=== PATIENT | male | born 1975 | race Caucasian/White ===

== ENCOUNTER 2018-04-30 09:20 | Emergency (ER) | payer OTHER, SELFPAY ==
[2018-04-30 09:20] VITALS: BMI 28.7
[2018-04-30] MEDS ORDERED: Lidocaine 1% Inj (20ml) INFIL STA (10:02)
[2018-04-30] MEDS ORDERED: Lidocaine 2% MPF (5 ml) Inj ONE (10:08)
[2018-04-30] MEDS ORDERED: Lidocaine Hydrochloride 5 ML INJ ONE (10:14)
[2018-04-30 10:45] LABS: FLUID TYPE SYNOVIAL FLUID
--- NOTE | 2018-04-30 11:12 | C.PDOC ---
History Of Present Illness 43 y/o male presents to the ER complaining of increased fluid collection over left knee over the past 3 days. Patient states that he had a minor contusion to the knee 2 weeks ago. Patient reports that he was walking extensively with his family 3 days ago. He notes that has swelling. Otherwise, patient denies having pain in knee, decreased ROM in knee, fever, and chills. Time Seen by Provider: 04/30/18 09:55 Chief Complaint (Nursing): Lower Extremity Problem/Injury History Per: Patient History/Exam Limitations: no limitations Onset/Duration Of Symptoms: Days Current Symptoms Are (Timing): Still Present Severity: Moderate Past Medical History Reviewed: Historical Data, Nursing Documentation, Vital Signs Vital Signs: Last Vital Signs Temp 98.6 F 04/30/18 09:37 Pulse 63 04/30/18 09:37 Resp 18 04/30/18 09:37 BP 123/76 04/30/18 09:37 Pulse Ox 98 04/30/18 09:37 - Medical History PMH: No Chronic Diseases Other Surgeries: Hx of surgeries - [facility] Procedures CORNEAL REPAIR NEC (11/27/13) EXCISE CONJUNCTIV LESION (01/29/14) OTHER SKIN & SUBQ I D (09/04/13) PTERYGIUM EXCISION NEC (11/27/13) Family History: States: No Known Family Hx - Social History Hx Tobacco Use: No Hx Alcohol Use: No Hx Substance Use: No - Immunization History Hx Tetanus Toxoid Vaccination: No Hx Influenza Vaccination: No Hx Pneumococcal Vaccination: No Review Of Systems Except As Marked, All Systems Reviewed And Found Negative. Constitutional: Negative for: Fever, Chills Skin: Positive for: Other (fluid collection over left knee) Physical Exam - Physical Exam Appears: Non-toxic, No Acute Distress Skin: Normal Color, Warm, Dry, Other (fluctuant fluid collection in suprapatellar bursa of left knee, 10 x 10 mm) Head: Atraumatic, Normacephalic Eye(s): bilateral: Normal Inspection Nose: Normal Oral Mucosa: Moist Neck: Supple Chest: Symmetrical Cardiovascular: Rhythm Regular Respiratory: Normal Breath Sounds, No Rales, No Rhonchi, No Wheezing Extremity: Normal ROM (full ROM in left knee without pain), No Tenderness (left knee), No Pedal Edema, Other (no joint effusion to left knee) Neurological/Psych: Oriented x3, Normal Speech ED Course And Treatment - Laboratory Results Lab Interpretation: Abnormal (synovial fluid/L knee aspirate: 430 WBC's (WNL) and 116K RBC's) O2 Sat by Pulse Oximetry: 98 (RA) Pulse Ox Interpretation: Normal Procedure: Blank - Time Out Time Out: Side verified, Site verified - Procedure Procedure:: Left Knee - Arthrocentesis - Consent obtained: Consent obtained: Written - Performed by: Performed by:: Attending physician - Topical: Local/Regional Anesthetic:: Lidocaine 1% (5 CC's) - Location Location: Left, Knee - Description Discription of Procedure: 04/30/18 (120 CC's of blood tinged serous fluid was removed from left knee.) - Result Result: Successful - Post-Procedure Post-procedure:: Other (bandage and walter-wrap applied to knee) - Patient Tolerated Procedure Patient Tolerated Procedure:: Well Medical Decision Making Medical Decision Making: Arthrocentesis of left knee was performed. Patient tolerated well. Samples have been sent for cell count. A/P trauamtic join effusion no joint pain now drained x 120 cc NSAIDS /WALTER wrap Disposition Doctor Will See Patient In The: Office Counseled Patient/Family Regarding: Studies Performed, Diagnosis - Disposition Disposition: HOME/ ROUTINE Disposition Time: 12:30 Condition: GOOD Forms: [facility] (Eth[place]ian) - Clinical Impression Clinical Impression: Prepatellar effusion of left knee - Scribe Statement The provider has reviewed the documentation as recorded by the Brittanie Chiang Provider Attestation: All medical record entries made by the Alejandroibjim were at my direction and personally dictated by me. I have reviewed the chart and agree that the record accurately reflects my personal performance of the history, physical exam, medical decision making, and the department course for this patient. I have also personally directed, reviewed, and agree with the discharge instructions and disposition.
[2018-04-30 12:18] VITALS: BP 107/64; PULSE 57; RESP 19; TEMP 98.3
[2018-04-30 12:20] LABS: SF GROSS APPEARANCE BLOODY (CLEAR); SYNOVIAL FLUID MONO/MACROPHAGE 13 % (0-0)
[2018-04-30 12:30] VITALS: O2SAT 98
== END 2018-04-30 12:51 | disposition home or self-care (01) ==
LOC: C.ER 09:20
DX: M25.462 Effusion, left knee (principal)

== ENCOUNTER 2018-05-08 07:53 | Emergency (ER) | payer OTHER, SELFPAY ==
[2018-05-08 07:53] VITALS: BMI 28.7
--- NOTE | 2018-05-08 10:22 | C.PDOC ---
History Of Present Illness 43 year old male presents to the ED complaining of recurrent fluid collection over left knee. States he fell 4 weeks ago and 3 days later he noticed swelling in his left knee. Patient was seen in the ED 8 days ago for same symptoms and anthrocentesis was performed successfully. Denies any pain, decreased ROM, fever or chills. Time Seen by Provider: 05/08/18 08:55 Chief Complaint (Nursing): Lower Extremity Problem/Injury History Per: Patient History/Exam Limitations: no limitations Onset/Duration Of Symptoms: Days Current Symptoms Are (Timing): Still Present - Knee Description Of Injury: Fell Past Medical History Reviewed: Historical Data, Nursing Documentation, Vital Signs Vital Signs: Last Vital Signs Temp 97.8 F 05/08/18 07:56 Pulse 60 05/08/18 07:56 Resp 20 05/08/18 07:56 BP 133/85 05/08/18 07:56 Pulse Ox 99 05/08/18 07:56 - Medical History PMH: No Chronic Diseases Other Surgeries: Hx of surgeries - [facility] Procedures CORNEAL REPAIR NEC (11/27/13) EXCISE CONJUNCTIV LESION (01/29/14) OTHER SKIN & SUBQ I D (09/04/13) PTERYGIUM EXCISION NEC (11/27/13) Family History: States: No Known Family Hx - Social History Hx Tobacco Use: No Hx Alcohol Use: No Hx Substance Use: No - Immunization History Hx Tetanus Toxoid Vaccination: No Hx Influenza Vaccination: No Hx Pneumococcal Vaccination: No Review Of Systems Except As Marked, All Systems Reviewed And Found Negative. Constitutional: Negative for: Fever, Chills Musculoskeletal: Positive for: Other (left knee fluid collection ) Neurological: Negative for: Weakness, Numbness Physical Exam - Physical Exam Appears: Non-toxic, No Acute Distress Skin: Warm, Dry Head: Normacephalic Eye(s): bilateral: Normal Inspection Nose: Normal Oral Mucosa: Moist Neck: Normal ROM, Supple Chest: Symmetrical Cardiovascular: Rhythm Regular Respiratory: No Rales, No Rhonchi, No Wheezing Gastrointestinal/Abdominal: Soft, No Tenderness Extremity: Normal ROM (left knee), No Tenderness, Swelling (left knee), Other (warmth and suprapatellar fluid collection to the left knee) Extremity: Bilateral: Normal ROM Neurological/Psych: Oriented x3, Normal Speech, Normal Motor, Normal Sensation, Normal Reflexes Gait: Steady ED Course And Treatment O2 Sat by Pulse Oximetry: 99 (RA) Pulse Ox Interpretation: Normal - Other Rad XR left knee X-Ray: Viewed By Me, Read By Radiologist Interpretation: Accession No. : [id number]. Patient Name / ID : BRADLEY KRUSE / [id number]. Exam Date : 05/08/2018 10:02:50 ( Approved ). Study Comment : Sex / Age : M / 43Y. Creator : Mariely Marquis MD. Dictator : Mariely Marquis MD. Shook Splicer : Life Support Technician : Mariely Marquis MD. Approver2 : Report Date : 05/08/2018 10:35:37. My Comment : . PROCEDURE: Left Knee Radiographs. HISTORY: Trauma with effusion. COMPARISON: No prior. FINDINGS: BONES: No acute displaced fracture. JOINTS: No dislocation. JOINT EFFUSION: Small suprapatellar joint effusion. OTHER FINDINGS: Marked prepatellar soft tissue swelling with possible hematoma. IMPRESSION: Marked prepatellar soft tissue swelling with possible hematoma. Small suprapatellar joint effusion. No acute displaced fracture or dislocation identified. Progress Note: Patient was seen by Ortho PA at bedside and requested MRI of the knee as per request. Medical Decision Making Medical Decision Making: Plan -- XR left knee Orthopedics was paged. Recommends MRI of left knee. Disposition - Disposition Disposition Time: 14:37 Condition: STABLE Forms: [facility] (Citizen Of [place]) - Clinical Impression Clinical Impression: Prepatellar effusion of left knee - PA / PRESERVATIVE FILLER MACHINE OPERATOR / Resident Statement MD/DO has reviewed & agrees with the documentation as recorded. - Scribe Statement The provider has reviewed the documentation as recorded by the Scribe Elaine Charles All medical record entries made by the Scribe were at my direction and personally dictated by me. I have reviewed the chart and agree that the record accurately reflects my personal performance of the history, physical exam, medical decision making, and the department course for this patient. I have also personally directed, reviewed, and agree with the discharge instructions and disposition. Physician Patient Turnover Patient Signed Over To: Lillie Grey Handoff Comments: MRI reading and Ortho eval
--- NOTE | 2018-05-08 10:39 | RAD ---
PROCEDURE: Left Knee Radiographs. HISTORY: Trauma with effusion COMPARISON: No prior. FINDINGS: BONES: No acute displaced fracture. JOINTS: No dislocation. JOINT EFFUSION: Small suprapatellar joint effusion. OTHER FINDINGS: Marked prepatellar soft tissue swelling with possible hematoma. IMPRESSION: Marked prepatellar soft tissue swelling with possible hematoma. Small suprapatellar joint effusion. No acute displaced fracture or dislocation identified.
--- NOTE | 2018-05-08 13:51 | CP.PCM.CON ---
History of Present Illness - History of Present Illness History of Present Illness: Orthopedic consultation Dr. Cordero 43M complains of left knee swelling x approx 1 month. He says he fell and landed on his knee about a month ago, and then he developed a lot of swelling in the front of his knee. He came to the ER and it was drained on 04/30. He made a follow up appt for [facility] in may, however the swelling recurred, so he came back to the ER. Denies fever/chills/sweats. Denies CP/SOB/dizziness/ No prior knee swelling. Minimal pain only. He is able to walk without any pain. He denies any knee pain prior to the last month after that fall. 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 Non smoker. No PMH/PSH. Review of Systems - Review of Systems All systems: reviewed and no additional remarkable complaints except - Cardiovascular Cardiovascular: As Per HPI - Respiratory Respiratory: As Per HPI - Gastrointestinal Gastrointestinal: As Per HPI - Musculoskeletal Musculoskeletal: As Per HPI - Neurological Neurological: As Per HPI - Hematologic/Lymphatic Hematologic: absent: As Per HPI, Easy Bleeding, Easy Bruising, Lymphadenopathy, Other Past Patient History - Past Medical History & Family History Past Medical History?: Yes Past Family History: Reviewed and not pertinent - Past Social History Smoking Status: Never Smoked - HEENT Hx HEENT Problems: Yes (scar conjunctival sac) - INTEGUMENTARY Hx Dermatological Problems: Yes Other/Comment: METAL IN LEFT FOOT CAUSING CELLULITIS - PSYCHIATRIC Hx Substance Use: No - SURGICAL HISTORY Hx Eye Surgery: Yes (exc.pterygium) - ANESTHESIA Hx Anesthesia: Yes Hx Anesthesia Reactions: No Meds Home Medications: Home Medication List Medication Instructions Recorded Confirmed Type Naproxen [Naprosyn] 1 tab PO BID PRN #20 tab 05/08/18 Rx Allergies/Adverse Reactions: Allergies Allergy/AdvReac Type Severity Reaction Status Date / Time No Known Allergies Allergy Verified 05/08/18 08:01 Physical Exam - Constitutional Appears: Well, No Acute Distress - Head Exam Head Exam: ATRAUMATIC - Neck Exam Neck exam: Positive for: Full Rom, Normal Inspection - Respiratory Exam Respiratory Exam: NORMAL BREATHING PATTERN - Cardiovascular Exam Additional comments: +DP/PT pulses - Extremities Exam Additional comments: no joint effusion appreciated, clinically appears all prepatellar - Expanded Lower Extremities Exam Left Hip exam: full ROM, normal inspection Knee exam: full ROM, swelling (very large fluctuant area of swelling to anterior knee. No erythema, not warm. skin intact. Full pain free ROM of knee. No lax varus/valgus/seble/neg homans, neg patellar laxity or apprehension, minimally tender) Lower Leg Exam: normal inspection (calves soft NT neg homans) Ankle exam: FULL ROM, NORMAL INSPECTION Neuro vacular tendon exam: no vascular compromise (+DP/PT pulsess, sensatino intact) - Neurological Exam Neurological exam: Alert, Oriented x3 - Psychiatric Exam Psychiatric exam: Normal Affect, Normal Mood - Skin Skin Exam: Dry, Intact, Normal Color, Warm Results - Vital Signs Recent Vital Signs: Last Vital Signs Temp 98.1 F 05/08/18 11:35 Pulse 53 L 05/08/18 11:35 Resp 17 05/08/18 11:35 BP 111/63 05/08/18 11:35 Pulse Ox 100 05/08/18 11:35 - Impressions Impression: atient Name / ID : BRADLEY KRUSE / [id number] Exam Date : 05/08/2018 13:26:00 ( Approved ) Study Comment : Sex / Age : M / 43Y Creator : Roshan Heredia MD Dictator : Roshan Heredia MD Timing Adjuster : Senior Writer : Roshan Heredia MD Approver2 : Report Date : 05/08/2018 15:11:40 My Comment : MRI left knee History: Prepatellar soft tissue swelling COMPARISON: X-ray dated 05/08/2018 TECHNIQUE: Multi-echo multiplanar sequences were performed through the left knee without the use of intravenous contrast. Findings: Thinning and attenuation with increased signal seen within the visualized anterior cruciate ligament suggestive for a moderate grade sprain with interstitial partial tearing/interstitial delamination. Posterior cruciate ligament is preserved. Transverse linear oblique signal seen within body and posterior horn of the medial meniscus extending to the inferior articular surface consistent with a tear. Discoid lateral meniscus with globular increased signal within the anterior horn of the lateral meniscus suggestive for intrasubstance degeneration and or intrasubstance partial tearing. Medial collateral ligament is preserved. Lateral collateral ligament complex structures are preserved. Mild distal quadriceps tendinopathy. Patellar tendon is preserved. Patellar cartilage is preserved. Low-grade strains of the medial and lateral patellar retinaculum. Mild cartilage thinning and loss involving the anterior midportion of the medial compartment of the femorotibial joint space. No significant suprapatellar joint effusion. Large amount of fluid within the prepatellar soft tissues/prepatellar bursa with heterogeneous attenuation seen at the inferior margin. The collection measures 15.3 x 9.5 x 12.0 centimeters suggestive for a severe prepatellar bursitis with associated possible hemorrhagic components at the inferior margin of the collection. Superimposed acute inflammatory and or infectious changes cannot be excluded. Adjacent reticulation and edema within the adjacent subcutaneous soft tissues. Focal signal abnormality seen within the anterior distal femur near the intercondylar notch at its midline as seen on series 4, image 12 demonstrating decreased T1 signal and increased STIR signal suggestive for bone bruising and or subchondral osseous injury and or osteochondral change and or additional etiology. Clinical correlation. 5 millimeter subchondral cyst formation noted within the posterior midline proximal tibia near the articular surface. Impression: 1. Large amount of fluid within the prepatellar soft tissues/prepatellar bursa with heterogeneous attenuation seen at the inferior margin. The collection measures 15.3 x 9.5 x 12.0 centimeters suggestive for a severe prepatellar bursitis with associated possible hemorrhagic components at the inferior margin of the collection. Superimposed acute inflammatory and or infectious changes cannot be excluded. Adjacent reticulation and edema within the adjacent subcutaneous soft tissues. 2. Thinning and attenuation with increased signal seen within the visualized anterior cruciate ligament suggestive for a moderate grade sprain with interstitial partial tearing/interstitial delamination. 3. Transverse linear oblique signal seen within body and posterior horn of the medial meniscus extending to the inferior articular surface consistent with a tear. 4. Discoid lateral meniscus with globular increased signal within the anterior horn of the lateral meniscus suggestive for intrasubstance degeneration and or intrasubstance partial tearing. 5. Mild distal quadriceps tendinopathy. 6. Low-grade strains of the medial and lateral patellar retinaculum. 7. Mild cartilage thinning and loss involving the anterior midportion of the medial compartment of the femorotibial joint space. 8. Focal signal abnormality seen within the anterior distal femur near the intercondylar notch at its midline as seen on series 4, image 12 demonstrating decreased T1 signal and increased STIR signal suggestive for bone bruising and or subchondral osseous injury and or osteochondral change and or additional etiology. Clinical correlation. 9. 5 millimeter subchondral cyst formation noted within the posterior midline proximal tibia near the articular surface. Assessment & Plan (1) Prepatellar bursitis, left knee Assessment and Plan: recurrent, prior aspiration in ED shows >100k RBC, 400 WBC, no indication of infection risks/benefits/alt of aspiration explained to patient in detail, consents to procedure translation device used 130cc of red tinged serous fluid aspirated from prepatellar area sent for gram stain and cx, fluid cell count, crystals bulky velasquez dressing applied post procedure, tolerated very well leave dressing intact until follow up visit no exercise, rest knee and limit flexing when possible return to ED for fever/chills/sweats/increased pain/redness/CP/SOB/palp advised patient that recurrence is possible case d/w Dr. Cordero, agrees with above patient with no pain in his knee at rest or with ambulation to suggest that there is significant bone bruise to indicate restricted WB at this time will monitor f/u orthopedic clinic 05/15 at 9am [facility], call for appointment MRI reviewed and report noted, meniscal tears asymptomatic at this time f/u cell count and cx Status: Acute (2) Prepatellar effusion of left knee Status: Acute
[2018-05-08] MEDS ORDERED: Lidocaine 1% Inj (20ml) INFIL ONE (14:20)
[2018-05-08] MEDS ORDERED: Lidocaine Hydrochloride 5 ML INJ ONE (14:28)
[2018-05-08 15:02] LABS: FLUID TYPE SYNOVIAL FLUID
--- NOTE | 2018-05-08 15:15 | MRI ---
MRI left knee History: Prepatellar soft tissue swelling COMPARISON: X-ray dated 05/08/2018 TECHNIQUE: Multi-echo multiplanar sequences were performed through the left knee without the use of intravenous contrast. Findings: Thinning and attenuation with increased signal seen within the visualized anterior cruciate ligament suggestive for a moderate grade sprain with interstitial partial tearing/interstitial delamination. Posterior cruciate ligament is preserved. Transverse linear oblique signal seen within body and posterior horn of the medial meniscus extending to the inferior articular surface consistent with a tear. Discoid lateral meniscus with globular increased signal within the anterior horn of the lateral meniscus suggestive for intrasubstance degeneration and or intrasubstance partial tearing. Medial collateral ligament is preserved. Lateral collateral ligament complex structures are preserved. Mild distal quadriceps tendinopathy. Patellar tendon is preserved. Patellar cartilage is preserved. Low-grade strains of the medial and lateral patellar retinaculum. Mild cartilage thinning and loss involving the anterior midportion of the medial compartment of the femorotibial joint space. No significant suprapatellar joint effusion. Large amount of fluid within the prepatellar soft tissues/prepatellar bursa with heterogeneous attenuation seen at the inferior margin. The collection measures 15.3 x 9.5 x 12.0 centimeters suggestive for a severe prepatellar bursitis with associated possible hemorrhagic components at the inferior margin of the collection. Superimposed acute inflammatory and or infectious changes cannot be excluded. Adjacent reticulation and edema within the adjacent subcutaneous soft tissues. Focal signal abnormality seen within the anterior distal femur near the intercondylar notch at its midline as seen on series 4, image 12 demonstrating decreased T1 signal and increased STIR signal suggestive for bone bruising and or subchondral osseous injury and or osteochondral change and or additional etiology. Clinical correlation. 5 millimeter subchondral cyst formation noted within the posterior midline proximal tibia near the articular surface. Impression: 1. Large amount of fluid within the prepatellar soft tissues/prepatellar bursa with heterogeneous attenuation seen at the inferior margin. The collection measures 15.3 x 9.5 x 12.0 centimeters suggestive for a severe prepatellar bursitis with associated possible hemorrhagic components at the inferior margin of the collection. Superimposed acute inflammatory and or infectious changes cannot be excluded. Adjacent reticulation and edema within the adjacent subcutaneous soft tissues. 2. Thinning and attenuation with increased signal seen within the visualized anterior cruciate ligament suggestive for a moderate grade sprain with interstitial partial tearing/interstitial delamination. 3. Transverse linear oblique signal seen within body and posterior horn of the medial meniscus extending to the inferior articular surface consistent with a tear. 4. Discoid lateral meniscus with globular increased signal within the anterior horn of the lateral meniscus suggestive for intrasubstance degeneration and or intrasubstance partial tearing. 5. Mild distal quadriceps tendinopathy. 6. Low-grade strains of the medial and lateral patellar retinaculum. 7. Mild cartilage thinning and loss involving the anterior midportion of the medial compartment of the femorotibial joint space. 8. Focal signal abnormality seen within the anterior distal femur near the intercondylar notch at its midline as seen on series 4, image 12 demonstrating decreased T1 signal and increased STIR signal suggestive for bone bruising and or subchondral osseous injury and or osteochondral change and or additional etiology. Clinical correlation. 9. 5 millimeter subchondral cyst formation noted within the posterior midline proximal tibia near the articular surface.
[2018-05-08 15:27] VITALS: BP 118/77; PULSE 60; RESP 18; TEMP 98; O2SAT 98
[2018-05-08 16:05] LABS: SF GROSS APPEARANCE BLOODY (CLEAR); SYNOVIAL FLUID MONO/MACROPHAGE 3 % (0-0)
[2018-05-08 16:06] LABS: FLUID CRYSTALS NEGATIVE (NEGATIVE)
== END 2018-05-08 15:27 | disposition home or self-care (01) ==
LOC: C.ER 07:53
DX: M70.42 Prepatellar bursitis, left knee (principal); M25.462 Effusion, left knee